=== PATIENT | male | born 1960 | race Two or more races ===

== ENCOUNTER 2024-06-28 06:44 | Day surgery (SDC) | payer OTHER ==
[2024-06-28] MEDS ORDERED: fentaNYL CITRATE 50 MCG/ML AMPUL IV PUSH ONE (09:30)
[2024-06-28] MEDS ORDERED: DIPHENHYDRAMINE HCL 50 MG/ML VIAL 1ML IV ONE (09:30)
[2024-06-28] MEDS ORDERED: MIDAZOLAM HCL 2 MG/2 ML VIAL IV ONE (09:30)
== END 2024-06-28 11:40 | disposition home or self-care (01) ==
LOC: AMB-ENDOS 06:44 → EDBD 06:44 → AMB-ENDOS 11:40
PROVIDERS: ATTEND Surgery
DX: D12.5 Benign neoplasm of sigmoid colon (principal); D12.2 Benign neoplasm of ascending colon; K63.5 Polyp of colon; K57.30 Diverticulosis of large intestine without perforation or abscess without bleeding

== ENCOUNTER 2024-07-09 12:09 | Inpatient (IN) | payer OTHER ==
[~2024-07-09] VITALS: Ht 170.2 cm; Wt 99.8 kg
[2024-07-09] MEDS ORDERED: COZAAR25 MG PO (12:17)
--- NOTE | 2024-07-09 12:17 | NUR ---
PACIENTE MASCULINO ALERTA Y ORIENTADO X3 QUIEN VERBALIZA QUE COMENZO DESDE EL MARJ DE HOY CON SANGRADO RECTAL. SE MONITOREAN S/V Y SE UBICA PACIENTE.
[2024-07-09] MEDS ORDERED: 0.9 % SODIUM CHLORIDE 1,000 ML IV SCH ×2 (13:15→20:00)
--- NOTE | 2024-07-09 13:43 | NUR ---
PTE ALERTA Y ORIENTADO X3 SE LE ORIENTA SOBRE TX MEDICO LO CUAL REFIERE ENTENDER Y ACEPTAR. SE LE REALIZA MUESTRAS DE LAB BAJO MEDIDAS ASEPTICAS Y SE LE ADMINISTRA MEDICAMENTOS BARNEY ORDEN MEDICAS
[2024-07-09] MEDS ORDERED: BARIUM SULFATE 450 ML ORAL.SUSP PO ONE (13:44)
[2024-07-09 13:57] LABS: HEMATOCRIT 37.3 % (39.0-48.0); HEMOGLOBIN 12.8 g/dL (13-16.00); MEAN CELL VOLUME 94.6 fL (80.0-100.00); MEAN CORPUSCULAR HEMOGLOBIN 32.4 pg (27.00-32.0); MEAN CORPUSCULAR HGB CONC 34.3 g/dl (32.0-36.0); RED BLOOD COUNT 3.94 M/uL (4.00-6.00); RED CELL DISTRIBUTION WIDTH 13.8 % (11.5-14.5)
[2024-07-09 14:36] LABS: PLATELET COUNT 198 K/uL (150-450)
[2024-07-09 15:02] LABS: ALBUMIN 3.5 gm/dL (3.4-5.0); BILIRUBIN TOTAL 1.07 mg/dL (0.3-1.2); BILIRUBIN,CONJUGATED 0.22 mg/dL (0.0-0.2); BILIRUBIN,UNCONJUGATED 0.85 mg/dL (0.0-0.6); CALCIUM 8.8 mg/dL (8.5-10.1); CREATININE SERUM 1.86 mg/dL (0.70-1.30); GFR 36.64; POTASSIUM 4.27 mEq/L (3.5-5.1); TOTAL PROTEIN 6.4 gm/dL (6.4-8.2)
[2024-07-09 15:52] LABS: ob POSITIVE (NEGATIVE)
[2024-07-09] MEDS ORDERED: PIPERACILLIN/TAZOBACTAM SODIUM 2.25 GM in DEXTROSE 5 % IN WATER 50 ML IV SCH (20:13)
[2024-07-09] MEDS ORDERED: PANTOPRAZOLE SODIUM 40 MG/VIAL VIAL IV SCH (20:13)
[2024-07-09] MEDS ORDERED: ACETAMINOPHEN 500 MG GEL..CAP PO PRN (20:15)
[2024-07-09 21:52] LABS: INR 1.15; PARTIAL THROMBOPLASTIN TIME 30.8 SECONDS (22.0-34.0); PROTHROMBIN TIME 12.4 SECONDS (9.0-11.5)
[2024-07-10] MEDS ORDERED: LOSARTAN POTASSIUM 100 MG TABLET PO SCH (09:00)
[2024-07-10 10:59] LABS: HEMATOCRIT 30.9 % (39.0-48.0); HEMOGLOBIN 10.7 g/dL (13-16.00); MEAN CELL VOLUME 96.8 fL (80.0-100.00); MEAN CORPUSCULAR HEMOGLOBIN 33.4 pg (27.00-32.0); MEAN CORPUSCULAR HGB CONC 34.5 g/dl (32.0-36.0); PLATELET COUNT 160 K/uL (150-450); RED BLOOD COUNT 3.19 M/uL (4.00-6.00); RED CELL DISTRIBUTION WIDTH 13.6 % (11.5-14.5)
[2024-07-10 11:33] LABS: ALBUMIN 3.3 gm/dL (3.4-5.0); BILIRUBIN TOTAL 1.36 mg/dL (0.3-1.2); CALCIUM 8.8 mg/dL (8.5-10.1); CREATININE SERUM 1.67 mg/dL (0.70-1.30); GFR 41.49; PHOSPHOROUS 2.4 mg/dL (2.5-4.9); POTASSIUM 4.5 mEq/L (3.5-5.1); TOTAL PROTEIN 6.3 gm/dL (6.4-8.2)
== END 2024-07-10 17:35 | DRG 392 ==
LOC: ER 12:09 → EDBD 14:02 → ER 14:02 → SEC-K 22:32 → SURH 07-10 16:09
PROVIDERS: General Practice; ADMIT Internal Medicine; ATTEND Internal Medicine
PROC: BW21ZZZ Computerized Tomography (CT Scan) of Abdomen and Pelvis (ICD-10-PCS; principal; 2024-07-09)
DX: K52.9 Noninfective gastroenteritis and colitis, unspecified (principal); K62.5 Hemorrhage of anus and rectum; N17.9 Acute kidney failure, unspecified; N18.9 Chronic kidney disease, unspecified; Z20.822 Contact with and (suspected) exposure to COVID-19